=== PATIENT | male | born 1975 | race Caucasian/White ===

== ENCOUNTER 2019-08-06 12:24 | Emergency (ER) | payer OTHER ==
[2019-08-06 13:11] LABS: BASOPHILS # (AUTO) 0.1 10^3/uL (0.0-0.1); BASOPHILS % (AUTO) 0.7 %; EOSINOPHILS # (AUTO) 0.2 10^3/uL (0.0-0.7); HGB - HEMOGLOBIN 16.4 g/dL (14.0-18.0); LYMPHOCYTES # (AUTO) 2.2 10^3/uL (1.5-3.5); LYMPHOCYTES % (AUTO) 30.7 %; MEAN CORPUSCULAR HEMOGLOBIN 31.7 pg (27.0-31.0); MEAN CORPUSCULAR HGB CONC 34.8 g/dL (32.0-36.0); MEAN CORPUSCULAR VOLUME 91.1 fL (80.0-94.0); MEAN PLATELET VOLUME 8.7 fL (7.4-11.4); MONOCYTES # (AUTO) 0.6 10^3/uL (0.0-1.0); MONOCYTES % (AUTO) 8.5 %; NEUTROPHILS % (AUTO) 56.2 %; PLT - PLATELET COUNT 274 10^3/uL (130-450); RED BLOOD COUNT 5.17 10^6/uL (4.70-6.10); RED CELL DISTRIBUTION WIDTH 11.9 % (12.0-15.0)
--- NOTE | 2019-08-06 13:18 | ED Physician Documentation ---
PD HPI CHEST PAIN - Stated complaint Stated Complaint: L SIDE CP - Chief complaint Chief Complaint: Cardiac - History obtained from History obtained from: Patient - History of Present Illness Timing - onset: Other (For the last 3 weeks has had an intermittent nonexertional sensation like his heart is beating too fast. It lasts for several minutes at a time. Happens maybe 1 or 2 times a day. He denies shortness of breath, pedal edema or calf pain. No personal heart history.) Review of Systems Constitutional: denies: Fever, Chills Cardiac: reports: Chest pain / pressure, Palpitations. denies: Pedal edema, Calf pain Respiratory: denies: Dyspnea, Cough PD PAST MEDICAL HISTORY - Allergies Allergies/Adverse Reactions: Allergies Allergy/AdvReac Type Severity Reaction Status Date / Time No Known Drug Allergies Allergy Verified 08/06/19 12:30 PD ED PE NORMAL - Vitals Vital signs reviewed: Yes - General General: Alert and oriented X 3, No acute distress - HEENT HEENT: PERRL, EOMI - Neck Neck: Supple, no meningeal sign, No bony TTP - Cardiac Cardiac: RRR, No murmur - Respiratory Respiratory: No respiratory distress, Clear bilaterally - Abdomen Abdomen: Non tender - Derm Derm: Normal color, Warm and dry - Extremities Extremities: No edema, No calf tenderness / cord - Neuro Neuro: Alert and oriented X 3, Normal speech Results - Vitals Vitals: Vital Signs - 24 hr 08/06/19 12:30 Temperature 36.5 C Heart Rate 62 Respiratory 14 Rate Blood Pressure 163/88 H O2 Saturation 97 Oxygen O2 Source Room air - EKG (time done) 1231 Rate: Rate (enter#) (60) Rhythm: NSR [place]: LAD Intervals: Normal IA QRS: Normal Ischemia: Normal ST segments Computer interpretation: Agree with computer - Labs Labs: Laboratory Tests 08/06/19 08/06/19 08/06/19 13:04 13:04 13:04 WBC 7.0 RBC 5.17 Hgb 16.4 Hct 47.1 MCV 91.1 MCH 31.7 H MCHC 34.8 RDW 11.9 L Plt Count 274 MPV 8.7 Neut # (Auto) 4.0 Lymph # (Auto) 2.2 Benzie # (Auto) 0.6 Eos # (Auto) 0.2 Baso # (Auto) 0.1 Absolute Nucleated RBC 0.00 Nucleated RBC % 0.0 Sodium 136 Potassium 4.0 Chloride 99 L Carbon Dioxide 27 Anion Gap 10.0 BUN 14 Creatinine 1.0 Estimated GFR (MDRD) 81 L Glucose 111 H Calcium 9.3 Total Bilirubin 0.6 AST 29 ALT 42 Alkaline Phosphatase 51 Troponin I High Sens < 2.3 L Total Protein 7.5 Albumin 4.6 Globulin 2.9 Albumin/Globulin Ratio 1.6 Lipase 25 - Rads (name of study) 1v chest Radiology: EMP read contemporaneously (normal) PD MEDICAL DECISION MAKING - ED course ED course: The description sounds like maybe an intermittent arrhythmia, he is in sinus rhythm on the monitor here. We will watch him for a bit and perform labs. Departure - Departure Disposition: 01 Home, Self Care Clinical Impression: Palpitations Chest pain Qualifiers: Chest pain type: precordial pain Qualified Code(s): R07.2 - Precordial pain Condition: Good Record reviewed to determine appropriate education?: Yes Instructions: ED Chest Pain NonCardiac Comments: As discussed, your chest pain is by description most consistent with some sort of arrhythmia, the heart beat was normal here. If you have persistent [place] what is called a Holter monitor for longer-term cardiac monitoring. From the standpoint of a potential coronary syndrome though all of your testing today was negative.
--- NOTE | 2019-08-06 13:20 | XRAY Report ---
Reason: chest pain Procedure Date: 08/06/2019 Accession Number: [id number] / [id number] Procedure: XR - Chest 1 View X-Ray CPT Code: 47075 Final Report FULL RESULT: EXAM: CHEST RADIOGRAPHY, PORTABLE 1 VIEW EXAM DATE: 08/06/2019 01:12 PM. CLINICAL HISTORY: Chest pain in a 44-year-old male. COMPARISON: None. TECHNIQUE: 1252 Hours AP upright portable view. FINDINGS: Lungs/Pleura: No focal opacities evident. No pleural effusion. No pneumothorax. Satisfactory inspiratory effort. Mediastinum: Heart size normal, without adenopathy or pulmonary vascular congestion. Other: Trachea is midline. Osseous structures appear normal. IMPRESSION: Normal chest for age and body size. No pneumonia, CHF or other demonstrated cause for chest pain. RADIA
[2019-08-06 13:27] LABS: ALBUMIN 4.6 g/dL (3.2-5.5); ALBUMIN/GLOBULIN RATIO 1.6 (1.0-2.2); BILIRUBIN,TOTAL 0.6 mg/dL (0.2-1.0); CALCIUM 9.3 mg/dL (8.5-10.3); TOTAL PROTEIN 7.5 g/dL (6.7-8.2)
[2019-08-06 13:59] VITALS: BP 124/81
== END 2019-08-06 14:00 | disposition home or self-care (01) ==
LOC: ED 12:24
DX: R00.2 Palpitations (principal); R07.2 Precordial pain
CPT/HCPCS: 36415; 71045; 80053; 83690; 84484; 85025; 93005; 99284

== ENCOUNTER 2020-06-05 15:42 | Outpatient (CLI) | payer OTHER ==
--- NOTE | 2020-06-08 10:46 | MRI Report ---
PROCEDURE: Knee RT W/O INDICATIONS: KNEE PAIN TECHNIQUE: Noncontrast sagittal PD fast spin echo and T2 fast spin echo with fat saturation, sagittal 3-D gradie nt sequence with fat saturation; coronal T1 spin echo and PD fast spin echo with fat saturation, and axial PD fast spin echo with fat saturation through the knee. COMPARISON: None. FINDINGS: Image quality: Excellent. Menisci: The medial and lateral menisci demonstrate normal morphology and internal signal. The meni scal root ligaments appear intact. Cruciate ligaments: The anterior and posterior cruciate ligaments appear intact. Medial structures: The medial collateral ligament appears intact. The posterior oblique ligament, s emimembranosus tendon insertions, and oblique popliteal ligament, and meniscocapsular junction appear intact. Visualized portions of the pes anserinus tendons appear normal. No abnormal bursal fluid. Lateral structures: The lateral collateral ligament, long and short heads of the biceps femoris tend on appear intact. The popliteus tendon appears normal; the popliteofibular ligament appears intact. The posterosuperior and anteroinferior popliteomeniscal fascicles appear intact. The arcuate and fa bellofibular ligaments appear intact, around the lateral inferior geniculate artery. Iliotibial band appears normal. Anterior structures: The quadriceps tendon is intact. Proximal patellar tendinosis at its insertion on the inferior patella is seen. Patellar alignment is normal. No femoral trochlear dysplasia or mikal tral trochlear prominence. No edema in the infrapatellar fat pad. Bones and cartilage: No bone marrow contusions or fractures. 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 Mild to moderate osteoarthritis is seen in mcgraw lofemoral compartment with moderate grade chondromalacia involving medial facet of patella cartilage. Joint space: There is small to moderate amount of joint fluid, no gross intra-articular loose body. There is a small Alaniz?s cyst. Normal appearing synovial plicae are incidentally noted. IMPRESSION: 1. 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 Mild to modera te osteoarthritis and chondromalacia involving medial facet of patella cartilage. No fracture or disl ocation. Small joint effusion and small popliteal cyst. 2. No evidence of focal meniscal tear. 3. Cruciate ligaments are intact. 4. Suggestion of proximal patellar tendinitis at its insertion on the inferior patella. No patellar t endon rupture. Distal quadriceps tendon is intact. Reviewed by: Sidney Jimenez MD on 06/08/2020 10:44 AM PDT Approved by: Sidney Jimenez MD on 06/08/2020 10:44 AM PDT Station ID: [id number]
--- NOTE | 2020-06-08 11:11 | MRI Report ---
PROCEDURE: Shoulder RT W/O INDICATIONS: SHOULDER PAIN TECHNIQUE: Noncontrast oblique coronal T2 fast spin echo with fat saturation, oblique sagittal T1 spin echo and T2 fast spin echo with fat saturation, axial T1 spin echo and T2 fast spin echo with fat saturation t hrough the shoulder. COMPARISON: None. FINDINGS: Image quality: Diagnostic. Patient motion is seen. Rotator cuff: Tendinosis and low to moderate grade articular and bursal surface partial-thickness tea r involving distal supraspinatus at its insertion on the humeral head is seen extending to musculoten dinous junction. Distal infraspinatus and subscapularis tendinosis is seen. No full-thickness rotator cuff tendon rupture.. No rotator cuff muscle atrophy on sagittal images. Bones and bursae: No bone marrow contusions or fractures. Mild to moderate acromioclavicular joint o steophytic changes are seen with downward osteophyte formation depressing the musculotendinous juncti on of supraspinatus. No significant joint effusion or subacromial subdeltoid bursal fluid. Capsule and soft tissues: In the absence of intra-articular contrast, the labrum and glenohumeral li gaments appear intact. The long head of the biceps tendon demonstrates normal location and morpholog y. The rotator interval appears normal, without fibrosis. The coracohumeral ligament is normal in t hickness. IMPRESSION: 1. Tendinosis and low to moderate grade articular and bursal surface partial-thickness tear involving distal supraspinatus at its insertion on humeral head extending to musculotendinous junction. Distal infraspinatus and subscapularis tendinosis. No full-thickness rotator cuff tendon rupture. 2. Mild to moderate acromioclavicular joint osteoarthritis. No fracture or dislocation. 3. No gross focal labral tear. Reviewed by: Sidney Jimenez MD on 06/08/2020 11:09 AM PDT Approved by: Sidney Jimenez MD on 06/08/2020 11:09 AM PDT Station ID: [id number]
== END 2020-06-05 15:43 | disposition home or self-care (01) ==
LOC: DI 15:42
PROVIDERS: ATTEND Family Medicine
DX: M17.11 Unilateral primary osteoarthritis, right knee (principal); M94.261 Chondromalacia, right knee; M19.011 Primary osteoarthritis, right shoulder; M75.101 Unspecified rotator cuff tear or rupture of right shoulder, not specified as traumatic

== ENCOUNTER 2020-09-23 13:42 | Outpatient (CLI) | payer OTHER ==
--- NOTE | 2020-09-23 16:10 | MRI Report ---
PROCEDURE: Knee LT W/O INDICATIONS: LT KNEE PAIN TECHNIQUE: Noncontrast sagittal PD fast spin echo and T2 fast spin echo with fat saturation, sagittal 3-D gradie nt sequence with fat saturation; coronal T1 spin echo and PD fast spin echo with fat saturation, and axial PD fast spin echo with fat saturation through the knee. COMPARISON: None. FINDINGS: Image quality: Excellent. Menisci: The medial and lateral menisci demonstrate normal morphology and internal signal. The meni scal root ligaments appear intact. Cruciate ligaments: The anterior and posterior cruciate ligaments appear intact. Medial structures: The medial collateral ligament appears intact. The posterior oblique ligament, s emimembranosus tendon insertions, and oblique popliteal ligament, and meniscocapsular junction appear intact. Visualized portions of the pes anserinus tendons appear normal. No abnormal bursal fluid. Lateral structures: The lateral collateral ligament, long and short heads of the biceps femoris tend on appear intact. The popliteus tendon appears normal; the popliteofibular ligament appears intact. The posterosuperior and anteroinferior popliteomeniscal fascicles appear intact. The arcuate and fa bellofibular ligaments appear intact, around the lateral inferior geniculate artery. Iliotibial band appears normal. Anterior structures: The quadriceps and patellar tendons appear intact. Patellar alignment is bobby l. No femoral trochlear dysplasia or ventral trochlear prominence. No edema in the infrapatellar fa t pad. Bones and cartilage: There is no fracture or dislocation. Articulating cartilages in medial and later al femoral tibial compartments are fairly well preserved. Moderate grade chondromalacia involving med ial facet of patella cartilage near apex is seen with underlying mild edema in posterior patella sugg estive of tiny osteochondral lesions. Joint space: There is small amount of joint fluid. No Alaniz?s cyst. Normal appearing synovial plic ae are incidentally noted. IMPRESSION: 1. 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 2. Small amount of joint fluid, no gross loose body. 3. Cruciate ligaments are intact. 4. No focal meniscal tear. Reviewed by: Sidney Jimenez MD on 09/23/2020 4:08 PM PST Approved by: Sidney Jimenez MD on 09/23/2020 4:08 PM PST Station ID: [id number]
== END 2020-09-23 13:43 | disposition home or self-care (01) ==
LOC: DI 13:42
PROVIDERS: ATTEND Orthopaedic Surgery
DX: M25.562 Pain in left knee (principal); M94.262 Chondromalacia, left knee